=== PATIENT | male | born 1945 | race Caucasian/White ===

== ENCOUNTER 2020-11-07 16:57 | Observation (INO) | payer MEDICARE ==
[~2020-11-07] VITALS: Ht 165.1 cm; Wt 87.0 kg
[~2020-11-07 16:57] MED LIST: ADULT ASA81 MG OR
--- NOTE | 2020-11-07 17:10 | NUR ---
PT AMBULATED TO ROOM. PT EXPLAINED PLAN OF CARE.
--- NOTE | 2020-11-07 18:43 | NUR ---
RESTING IN ROOM WITHOUT ANY DISTRESS
[2020-11-07 18:46] LABS: HEMATOCRIT 45.6 % (39.0-50.0); HEMOGLOBIN 14.4 g/dl (14.0-18.0); IMMATURE GRANULOCYTES 0.3 % (0.0-5.0); MEAN CELL VOLUME 94.2 fL CALC (80.0-100.0); MEAN CORPUSCULAR HGB 29.8 pG CALC (26.0-32.0); MEAN CORPUSCULAR HGB CONC 31.6 g/dL CAL (32.0-36.0); NEUT# 3.51 thou/uL (1.82-7.42); RED BLOOD COUNT 4.84 mill/uL (4.70-6.10); RED CELL DISTRI WIDTH 13.6 % (11.5-15.5)
[2020-11-07 19:04] LABS: ALBUMIN 3.7 g/dL (3.2-5.0); ALKALINE PHOSPHATASE 76 u/l (38-126); ANION GAP 10 (6-22 (CALC)); BILIRUBIN, TOTAL 0.9 mg/dL (0.0-1.4); BUN 17 mg/dL (8-23); BUN/CREATININE RATIO 17 (12-20 (CALC)); CARBON DIOXIDE 26 mmol/l (22-30); CHLORIDE 103 mmol/l (95-108); GFR > 60 ML/MIN (>=60 (CALC)); GFR FOR AFR.AMER. > 60 ML/MIN (>=60 (CALC)); POTASSIUM 4.6 mmol/l (3.5-5.1); SGOT/AST 27 u/l (19-48); SODIUM 135 mmol/l (137-146); TOTAL PROTEIN 7.6 g/dL (6.3-8.2)
[2020-11-07 19:16] LABS: MYOGLOBIN 42 ng/mL (0 - 121)
[2020-11-07 21:00] VITALS: BP 134/90
--- NOTE | 2020-11-07 21:06 | NUR ---
Admission Note Report Given to: WALE Transported by: X Wheelchair Stretcher Transported with: X Nurse Transporter X Patent IV X O2 X [employer] Location: ICU X [facility]
--- NOTE | 2020-11-07 21:06 | NUR ---
UNABLE TO OBTAIN MED LIST, PATIENTS WILL BRINGG THEM IN
--- NOTE | 2020-11-07 21:30 | NUR ---
PT ARRIVED TO UNIT AT APPROXIMATLEY 2100. PT WAS ABLE TO STAND T BE WEIGHED AND THEN AMBULATED HIMSELF TO THE BED. BREATHING EVEN AND UNLABORED. LUNGS CTA IN R UPPER, R MIDDLE, R BASE, L UPPER. DIMINSHED IN LLL. BS ACTIVE X 4 QUADS. ON O2 @ 2L VIA NC. SKIN INTACT, LESION TO R KNEE. PT INDICATED IT HAS BEEN THERE FOR OVER 20 YEARS. PT REPORTS AT TIMES IT WILL HAVE SOME DISCHARGE FROM IT, BUT NO S/S OF INFECTION NOTED. IV TO LFA INFILTRATED AT FIRST FLUSH, NEW IV SITE TO BE STARTED. PULSES PALBABLE. PT WITH AFIB, HEART IS IRREGULAR ON AUSCULTATION. NO S/S OF DISTRESS NOTED. PT DENIES PAIN. PT ON TELE RUNNING AFIB. WILL MONITOR.
--- NOTE | 2020-11-07 23:21 | NUR ---
NEW IV SITE PLACED TO LAC #20, NS AT 100ML/HR. SITE PLACED THEN FLUSHED WITH 10ML. PT TOLERATED WELL. ABT AND IV FLUIDS HOOKED UP TO [facility] AND ARE CURRENTLY RUNNING WITHOUT DIFFICULTY. ANIYA VASQUEZ
[2020-11-08] VITALS: BP 117/74
--- NOTE | 2020-11-08 00:29 | NUR ---
PT RESTING ON HIS LEFT SIDE AT THIS TIME. BREATHING EVEN AND UNLABORED. NO COMPLAINTS VOICED. SAFETY PRECAUTIONS IN PLACE WILL MONITOR.
[2020-11-08 04:00] VITALS: BP 108/76
--- NOTE | 2020-11-08 04:08 | NUR ---
PT RESTING QUIETLY IN BED, NO COMPLAINTS VOICED AT THIS TIME. SAFETY PRECAUTIONS IN PLACE, BED IN LOWEST POSITION, CALL LIGHT WITHIN REACH. WILL CONTINUE TO MONITOR
--- NOTE | 2020-11-08 06:24 | NUR ---
Patient is screened for PT intervention and no needs are identified at this time
--- NOTE | 2020-11-08 07:00 | NUR ---
RECIEVED REPORT FROM MUKUND DICKSON.
[2020-11-08 07:15] VITALS: BP 114/84
--- NOTE | 2020-11-08 07:46 | NUR ---
PT RESTING IN SEMI FOWLERS POSITION. PT IS A/O X3. ASSESSMENT AND VITALS COMPLETED. BP 114/84, HR 83, O2 97% ON 2L NC. RESPIRATIONS ARE EVEN AND UNLABORED WITH NO DISTRESS NOTED. PRODUCTIVE COUGH REPORTED. HEART RHYTHM IS IRREGULAR WITH TELE IN PLACE, AFIB PER ER MONITORING. BOWEL SOUNDS ACTIVE. RADIAL AND PEDAL PUSLES STRONG.#20G IN LAC INFUSING WITH IVF PER ORDER, SITE REMAINS HEALTHY AND PATENT. SKIN IS INTACT. PT DENIES OF ANY NEEDS AT THIS TIME, REQUESTING TO GO HOME. ALL SAFETY PRECAUTIONS ARE IN PLACE WITH CALL LIGHT IN REACH. WILL CONTINUE TO MONITOR.
--- NOTE | 2020-11-08 08:55 | NUR ---
DR MARIE AT BEDSIDE
--- NOTE | 2020-11-08 09:14 | NUR ---
LAB AT BEDSIDE
--- NOTE | 2020-11-08 09:21 | NUR ---
UA OBTAINED. PT NOTFIED OF NEEDED SPUTUM CULTURE.
[2020-11-08 09:35] LABS: HEMATOCRIT 45.9 % (39.0-50.0); HEMOGLOBIN 14.4 g/dl (14.0-18.0); IMMATURE GRANULOCYTES 0.4 % (0.0-5.0); MEAN CELL VOLUME 94.8 fL CALC (80.0-100.0); MEAN CORPUSCULAR HGB 29.8 pG CALC (26.0-32.0); MEAN CORPUSCULAR HGB CONC 31.4 g/dL CAL (32.0-36.0); NEUT# 4.65 thou/uL (1.82-7.42); RED BLOOD COUNT 4.84 mill/uL (4.70-6.10); RED CELL DISTRI WIDTH 13.5 % (11.5-15.5)
[2020-11-08 09:38] LABS: URINE BILIRUBIN - DIPSTICK NEGATIVE (NEGATIVE); URINE BLOOD DIPSTICK NEGATIVE (NEGATIVE); URINE COLOR YELLOW; URINE GLUCOSE - DIPSTICK NEGATIVE (NEGATIVE); URINE KETONE NEGATIVE (NEGATIVE); URINE LEUK ESTERASE NEGATIVE (NEGATIVE); URINE NITRITE - DIPSTICK NEGATIVE (Negative); URINE PROTEIN - DIPSTICK NEGATIVE (NEG-TRACE); URINE UROBILINOGEN - DIPSTICK 0.2 E.U./dL (0.2)
[2020-11-08 10:00] LABS: ANION GAP 11 (6-22 (CALC)); BUN 13 mg/dL (8-23); BUN/CREATININE RATIO 15 (12-20 (CALC)); CARBON DIOXIDE 25 mmol/l (22-30); CHLORIDE 104 mmol/l (95-108); CREATININE 0.9 mg/dL (0.7-1.3); GFR > 60 ML/MIN (>=60 (CALC)); GFR FOR AFR.AMER. > 60 ML/MIN (>=60 (CALC)); MAGNESIUM 1.8 mg/dL (1.6-2.3); SODIUM 136 mmol/l (137-146)
--- NOTE | 2020-11-08 11:31 | NUR ---
1040: DOWN TO XRAY FOR A CAT SCAN VIA W/C 1100: RETURNED TO ROOM WITHOUT INCIDENCE. OXYGEN ON. SPUTUM SPECIMENT SENT DOWN TO LAB.
--- NOTE | 2020-11-08 11:41 | NUR ---
O2 SAT 96% ON 2L NC. O2 REMOVED TO ATTEMPT TO WEAN. PT INSTRUCTED TO REAPPLY O2 IF HAVING SOB. PT VERBALIZED UNDERSTANDING.
--- NOTE | 2020-11-08 12:47 | NUR ---
REASSESSMENT OF O2, 97% ON ROOM AIR. PHARMACY CALLED TO COMPLETE MED REC. RESPIRATIONSA REMAINS EVEN AND UNLABORED
[2020-11-08] MEDS ORDERED: SINGULAIR10 MG PO (12:51)
[2020-11-08] MEDS ORDERED: XARELTO10 MG PO (12:51)
[2020-11-08] MEDS ORDERED: VITAMIN B-12500 MCG PO (12:51)
[2020-11-08] MEDS ORDERED: METOPROLOL SUCC50 MG PO (13:06)
[2020-11-08] MEDS ORDERED: LORATADINE10 M1 PO (13:07)
[2020-11-08] MEDS ORDERED: ALLERGY RE50 MCG/ACT (13:07)
[2020-11-08] MEDS ORDERED: MUCINEX600 MG PO (13:17)
--- NOTE | 2020-11-08 13:39 | NUR ---
WALK TEST COMPLETED. RESTING 96% ON ROOM AIR. 91% WHILE WALKING ON ROOM AIR. 94% ON ROOM AIR UPON RESTING. RESPRIATIONS REMAINS EVEN AND UNLABORED. MAHESH AIKEN NOTIFIED.
[2020-11-08] MEDS ORDERED: Levaquin PO (13:56)
[2020-11-08] MEDS ORDERED: PREDNISONE20 MG PO (13:56)
[2020-11-08] MEDS ORDERED: TESSALON PERLE100 MG PO (14:39)
--- NOTE | 2020-11-08 14:42 | NUR ---
PT EDUCATED ON DISCHARGE INSTRUCTIONS AND NEW MEDICATIONS. TRAE CARVALHO ADDED TO PRESCRITIONS. PT VERBALED UNDERSTANDING. #20G IN LAC REMOVED WITH CATHATER INTACT. PT TOLERATED WELL. AT BEDSIDE. TELE MONITORING REMOVED. PT DENIES OF ANY QUESTIONS OR CONCERNS
--- NOTE | 2020-11-08 14:44 | NUR ---
Discharge instructions given. Patient verbalizes understanding of same. Discharged in stable condition via Wheelchair to Home with staff. All belongings sent with pt. PT DISCHARGED HOME IN STABLE CONDITION VIA WHEELCHAIR ACCOMPAINED BY AND STAFF. ALL DISCHARGE INSTRUCTIONS AND BELONGINGS.
== END 2020-11-08 14:44 | disposition home or self-care (01) ==
LOC: ED 16:57 → MS2 20:16
PROVIDERS: Emergency Medicine; Nurse Practitioner; ADMIT Internal Medicine; ATTEND Internal Medicine
DX: J18.9 Pneumonia, unspecified organism (principal); R59.0 Localized enlarged lymph nodes; J43.9 Emphysema, unspecified; I48.91 Unspecified atrial fibrillation; Z20.822 Contact with and (suspected) exposure to COVID-19; R05 Cough
CPT/HCPCS: G0378; J1650; Q9967